=== PATIENT | male | born 1960 | race Caucasian/White ===

== ENCOUNTER 2018-12-31 08:14 | Observation (INO) | payer BC, OTHER ==
[2018-12-31] MEDS ORDERED: NS 1,000 ML IV ONE (08:44)
[2018-12-31 09:05] LABS: PLATELET COUNT 154 10^3/uL (150-400)
[2018-12-31 09:17] LABS: CREATINE KINASE 96 IU/L (0-224)
--- NOTE | 2018-12-31 09:33 | EDPHY ---
H & P Time Seen by Provider: 12/31/18 09:24 HPI/ROS: Chief complaint. Abnormal labs HPI. 50-year-old male with history of dyslipidemia. He began rib path the injections October 23. These are weekly injections. He had routine recheck of labs 2 days ago. The laboratory evaluation showed the AST to be 1532 and ALT 3640. Alkaline phosphatase was 127. LDH 362 with toe deep total bilirubin 1.4. Patient has some nausea. No abdominal pain or vomiting or diarrhea. No fever. No chest pain no shortness of breath. He notes he has been stiff and has had some right low back pain for the last 3-4 days. No recent travel or exposure. Denies Tylenol ingestion ROS 10 systems were reviewed and negative with the exception of the elements mentioned in the history of present illness Past Medical/Surgical History: Sinusitis, hypertension, dyslipidemia, coronary artery bypass graft x4 with stents Social History: Single, nonsmoker, no alcohol Smoking Status: Never smoked Physical Exam: General Appearance: Alert well-developed male mild distress. Vital signs are stable Eyes: Pupils equal and round no pallor or injection. ENT, Mouth: Mucous membranes are moist. Respiratory: There are no retractions, lungs are clear to auscultation. Cardiovascular: Regular rate and rhythm. Gastrointestinal: Abdomen is soft and nontender, no masses, bowel sounds normal. Neurological: Awake and alert, sensory and motor exams grossly normal. Skin: Warm and dry, no rashes. Musculoskeletal: Neck is supple nontender. Extremities symmetrical, full range of motion. Psychiatric: Patient is oriented X 3, there is no agitation. Constitutional: Initial Vital Signs Temperature (C) 36.7 C 12/31/18 08:25 Heart Rate 60 12/31/18 08:25 Respiratory Rate 16 12/31/18 08:25 Blood Pressure 172/100 H 12/31/18 08:25 O2 Sat (%) 98 12/31/18 08:25 O2 Delivery Mode Room Air Allergies/Adverse Reactions: niacin Allergy (Verified 12/31/18 11:26) Dizziness/Faint/Dyspnea Home Medications: Medication Instructions Recorded Lisinopril [Zestril 5 mg (*)] 5 mg PO DAILY 09/08/15 Rosuvastatin Calcium [Crestor 40mg 40 mg PO DAILY 09/08/15 (*)] Aspirin [Aspirin 81mg (*)] 81 mg PO DAILY 12/31/18 Cholecalciferol Vit D3 [Vitamin D3 2,000 units PO DAILY 12/31/18 2000 units tab (OTC)] Cholecalciferol Vit D3 [Vitamin D3 2,000 units PO DAILY 12/31/18 2000 units tab (OTC)] Evolocumab [Repatha Sureclick] 140 mg SQ Q14D 12/31/18 Ferrous Sulfate [Ferrous Sulf 325 325 mg PO DAILY 12/31/18 MG (*)] Fluticasone Nasal [Flonase Nasal 1 sprays NASAL DAILY PRN 12/31/18 [place] (RX)] Metoprolol Succinate Xr [Toprol Xl 12.5 mg PO DAILY 12/31/18 25 mg (*)] Multivitamins [Multivitamin (*)] 1 each PO DAILY 12/31/18 [place]-3 Fatty Acids [Fish Oil 1000 1,000 mg PO DAILY 12/31/18 mg (*)] Prasugrel HCl [Effient 10mg (*)] 10 mg PO DAILY 12/31/18 Medical Decision Making - Diagnostics Imaging Results: Imaging Impressions Abdomen Ultrasound 12/31/18 10:00 Impression: Normal. No cholelithiasis, biliary dilation, hydronephrosis or free fluid. Findings discussed with Emergency Department physician, Vito Cárdenas at 2018 at 11:03 a.m. Procedures: IV normal saline ED Course/Re-evaluation: Patient and I discussed laboratory evaluation, treatment plan including recommendation for admission. He expresses understanding Consulted discussed case with hospitalist, who agrees to the admission Differential Diagnosis: Acute elevation of liver function tests. I have considered Tylenol ingestion, cholecystitis, hepatitis. It is possible that this is medication related. - Data Points Laboratory Results: Laboratory Results 12/31/18 08:50 12/31/18 08:50 12/31/18 12/31/18 12/31/18 08:50 08:50 08:50 WBC 8.19 10^3/uL 10^3/uL (3.80-9.50) RBC 5.72 10^6/uL 10^6/uL (4.40-6.38) Hgb 17.0 g/dL g/dL (13.7-17.5) Hct 52.1 % H % (40.0-51.0) MCV 91.1 fL fL (81.5-99.8) MCH 29.7 pg pg (27.9-34.1) MCHC 32.6 g/dL g/dL (32.4-36.7) RDW 14.1 % % (11.5-15.2) Plt Count 154 10^3/uL 10^3/uL (150-400) MPV 12.1 fL H fL (8.7-11.7) Neut % (Auto) 42.6 % % (39.3-74.2) Lymph % (Auto) 29.8 % % (15.0-45.0) [place] % (Auto) 11.1 % % (4.5-13.0) Eos % (Auto) 14.7 % H % (0.6-7.6) Baso % (Auto) 1.6 % % (0.3-1.7) Nucleat RBC Rel Count 0.0 % % (0.0-0.2) Absolute Neuts (auto) 3.49 10^3/uL 10^3/uL (1.70-6.50) Absolute Lymphs (auto) 2.44 10^3/uL 10^3/uL (1.00-3.00) Absolute Monos (auto) 0.91 10^3/uL H 10^3/uL (0.30-0.80) Absolute Eos (auto) 1.20 10^3/uL H 10^3/uL (0.03-0.40) Absolute Basos (auto) 0.13 10^3/uL H 10^3/uL (0.02-0.10) Absolute Nucleated RBC 0.00 10^3/uL 10^3/uL (0-0.01) Immature Gran % 0.2 % % (0.0-1.1) Immature Gran # 0.02 10^3/uL 10^3/uL (0.00-0.10) Sodium 141 mEq/L mEq/L (135-145) Potassium 4.4 mEq/L mEq/L (3.5-5.2) Chloride 109 mEq/L mEq/L (97-110) Carbon Dioxide 22 mEq/l mEq/l (22-31) Anion Gap 10 mEq/L mEq/L (6-14) BUN 17 mg/dL mg/dL (7-23) Creatinine 0.9 mg/dL mg/dL (0.7-1.3) Estimated GFR > 60 Glucose 104 mg/dL H mg/dL (70-100) Calcium 9.4 mg/dL mg/dL (8.5-10.4) Total Bilirubin 0.5 mg/dL mg/dL (0.1-1.4) Conjugated Bilirubin 0.4 mg/dL mg/dL (0.0-0.5) Unconjugated Bilirubin 0.1 mg/dL mg/dL (0.0-1.1) AST 365 IU/L H IU/L (17-59) ALT 2142 IU/L H IU/L (21-72) Alkaline Phosphatase 99 IU/L IU/L (38-126) Creatine Kinase 96 IU/L IU/L (0-224) Total Protein 6.5 g/dL g/dL (6.3-8.2) Albumin 4.0 g/dL g/dL (3.5-5.0) Lipase 335 IU/L H IU/L (23-300) Urine Color Urine Appearance Urine pH Ur Specific [place] Urine Protein Urine Ketones Urine Blood Urine Nitrate Urine Bilirubin Urine Urobilinogen Ur Leukocyte Esterase Urine Glucose Acetaminophen < 10 mcg/mL L mcg/mL (10-30) 12/31/18 08:30 WBC RBC Hgb Hct MCV MCH MCHC RDW Plt Count MPV Neut % (Auto) Lymph % (Auto) Cass % (Auto) Eos % (Auto) Baso % (Auto) Nucleat RBC Rel Count Absolute Neuts (auto) Absolute Lymphs (auto) Absolute Monos (auto) Absolute Eos (auto) Absolute Basos (auto) Absolute Nucleated RBC Immature Gran % Immature Gran # Sodium Potassium Chloride Carbon Dioxide Anion Gap BUN Creatinine Estimated GFR Glucose Calcium Total Bilirubin Conjugated Bilirubin Unconjugated Bilirubin AST ALT Alkaline Phosphatase Creatine Kinase Total Protein Albumin Lipase Urine Color YELLOW Urine Appearance HAZY Urine pH 5.0 (5.0-7.5) Ur Specific [place] 1.018 (1.002-1.030) Urine Protein NEGATIVE (NEGATIVE) Urine Ketones NEGATIVE (NEGATIVE) Urine Blood NEGATIVE (NEGATIVE) Urine Nitrate NEGATIVE (NEGATIVE) Urine Bilirubin NEGATIVE (NEGATIVE) Urine Urobilinogen NEGATIVE EU EU (0.2-1.0) Ur Leukocyte Esterase NEGATIVE (NEGATIVE) Urine Glucose NEGATIVE (NEGATIVE) Acetaminophen Medications Given: Sodium Chloride (Ns) 1,000 mls @ 125 mls/hr IV CONT MELANI Stop: 06/29/19 10:29 Last Admin: 12/31/18 12:34 Dose: 1,000 mls Discontinued Medications Sodium Chloride (Ns) 1,000 mls @ 0 mls/hr IV EDNOW ONE; Wide Open PRN Reason: Protocol Stop: 12/31/18 08:45 Last Admin: 12/31/18 08:55 Dose: 1,000 mls Departure - Departure Disposition: [facility] Acute Clinical Impression: Liver function abnormality Condition: Fair
[2018-12-31] MEDS ORDERED: ONDANSETRON 4 MG/2 ML VIAL IVP PRN (10:25)
[2018-12-31] MEDS ORDERED: ONDANSETRON DISINTEGRATING 4 MG TAB PO PRN (10:25)
[2018-12-31] MEDS ORDERED: ACETAMINOPHEN 325 MG TAB PO PRN (10:25)
[2018-12-31] MEDS: NS 1,000 ML IV SCH ×2 (12:34→20:26)
--- NOTE | 2018-12-31 15:28 | PDGENHP ---
History and Physical - Chief Complaint Transaminitis - History of Present Illness Vito Murray is a 58 yo M with a PMHx of HLD receiving Repatha injections biweekly , CAD s/p Stenting 08/2018 who presents to [facility] for abnormal liver function tests. Patient reports that he had routine labs checked 2 days ago which revealed elevated liver enzymes so he was directed to [facility] ED this morning. He denies any abdominal pain, n/v, d/c, jaundice, edema, f/c, chest pain, SOB. He denies any tylenol use, drinks socially on weekends, denies any other drug use or recent travel. History Information - Allergies/Home Medication List Allergies/Adverse Reactions: niacin Allergy (Verified 12/31/18 11:26) Dizziness/Faint/Dyspnea Home Medications: Lisinopril [Zestril 5 mg (*)] 5 mg PO DAILY 09/08/15 [Last Taken 12/31/18] Rosuvastatin Calcium [Crestor 40mg (*)] 40 mg PO DAILY 09/08/15 [Last Taken 05/13] Aspirin [Aspirin 81mg (*)] 81 mg PO DAILY 12/31/18 [Last Taken 12/31/18] Cholecalciferol Vit D3 [Vitamin D3 2000 units tab (OTC)] 2,000 units PO DAILY [Last Taken 12/31/18] Cholecalciferol Vit D3 [Vitamin D3 2000 units tab (OTC)] 2,000 units PO DAILY [Last Taken 12/31/18] Evolocumab [Repatha Sureclick] 140 mg SQ Q14D 12/31/18 [Last Taken 12/18/18] Ferrous Sulfate [Ferrous Sulf 325 MG (*)] 325 mg PO DAILY 12/31/18 [Last Taken 12/31/18] Fluticasone Nasal [Flonase Nasal [place] (RX)] 1 sprays NASAL DAILY PRN 12/31/18 [ Last Taken Unknown] Metoprolol Succinate Xr [Toprol Xl 25 mg (*)] 12.5 mg PO DAILY 12/31/18 [Last Taken 12/31/18] Multivitamins [Multivitamin (*)] 1 each PO DAILY 12/31/18 [Last Taken 12/31/18] [place]-3 Fatty Acids [Fish Oil 1000 mg (*)] 1,000 mg PO DAILY 12/31/18 [Last Taken 12/31/18] Prasugrel HCl [Effient 10mg (*)] 10 mg PO DAILY 12/31/18 [Last Taken 12/31/18] I have personally reviewed and updated: family history, medical history, social history, surgical history - Past Medical History coronary artery disease, hyperlipidemia - Surgical History Reports: no pertinent surgical hx - Family History Positive for: non-pertinent - Social History Smoking Status: Never smoked Alcohol Use: Occasionally Drug Use: None Review of Systems Review of Systems: ROS: 10pt was reviewed & negative except for what was stated in HPI & below Physical Exam Physical Exam: Temp Pulse Resp BP Pulse Ox 37.0 C 49 L 12 152/85 H 94 12/31/18 11:23 12/31/18 11:23 12/31/18 11:23 12/31/18 11:23 12/31/18 11:23 Constitutional: no apparent distress Eyes: PERRL Ears, Nose, Mouth, Throat: moist mucous membranes Cardiovascular: regular rate and rhythym Respiratory: no respiratory distress Gastrointestinal: soft, non-tender abdomen, No guarding, No rebound, No distension Genitourinary: No velazco in urethra Skin: warm, normal color Musculoskeletal: full muscle strength Neurologic: AAOx3 Psychiatric: interacting appropriately Lab Data & Imaging Review 12/31/18 08:50 12/31/18 08:50 WBC 8.19 10^3/uL (3.80-9.50) 12/31/18 08:50 RBC 5.72 10^6/uL (4.40-6.38) 12/31/18 08:50 Hgb 17.0 g/dL (13.7-17.5) 12/31/18 08:50 Hct 52.1 % (40.0-51.0) H 12/31/18 08:50 MCV 91.1 fL (81.5-99.8) 12/31/18 08:50 MCH 29.7 pg (27.9-34.1) 12/31/18 08:50 MCHC 32.6 g/dL (32.4-36.7) 12/31/18 08:50 RDW 14.1 % (11.5-15.2) 12/31/18 08:50 Plt Count 154 10^3/uL (150-400) 12/31/18 08:50 MPV 12.1 fL (8.7-11.7) H 12/31/18 08:50 Neut % (Auto) 42.6 % (39.3-74.2) 12/31/18 08:50 Lymph % (Auto) 29.8 % (15.0-45.0) 12/31/18 08:50 [place] % (Auto) 11.1 % (4.5-13.0) 12/31/18 08:50 Eos % (Auto) 14.7 % (0.6-7.6) H 12/31/18 08:50 Baso % (Auto) 1.6 % (0.3-1.7) 12/31/18 08:50 Nucleat RBC Rel Count 0.0 % (0.0-0.2) 12/31/18 08:50 Absolute Neuts (auto) 3.49 10^3/uL (1.70-6.50) 12/31/18 08:50 Absolute Lymphs (auto) 2.44 10^3/uL (1.00-3.00) 12/31/18 08:50 Absolute Monos (auto) 0.91 10^3/uL (0.30-0.80) H 12/31/18 08:50 Absolute Eos (auto) 1.20 10^3/uL (0.03-0.40) H 12/31/18 08:50 Absolute Basos (auto) 0.13 10^3/uL (0.02-0.10) H 12/31/18 08:50 Absolute Nucleated RBC 0.00 10^3/uL (0-0.01) 12/31/18 08:50 Immature Gran % 0.2 % (0.0-1.1) 12/31/18 08:50 Immature Gran # 0.02 10^3/uL (0.00-0.10) 12/31/18 08:50 Sodium 141 mEq/L (135-145) 12/31/18 08:50 Potassium 4.4 mEq/L (3.5-5.2) 12/31/18 08:50 Chloride 109 mEq/L (97-110) 12/31/18 08:50 Carbon Dioxide 22 mEq/l (22-31) 12/31/18 08:50 Anion Gap 10 mEq/L (6-14) 12/31/18 08:50 BUN 17 mg/dL (7-23) 12/31/18 08:50 Creatinine 0.9 mg/dL (0.7-1.3) 12/31/18 08:50 Estimated GFR > 60 12/31/18 08:50 Glucose 104 mg/dL (70-100) H 12/31/18 08:50 Calcium 9.4 mg/dL (8.5-10.4) 12/31/18 08:50 Total Bilirubin 0.5 mg/dL (0.1-1.4) 12/31/18 08:50 Conjugated Bilirubin 0.4 mg/dL (0.0-0.5) 12/31/18 08:50 Unconjugated Bilirubin 0.1 mg/dL (0.0-1.1) 12/31/18 08:50 AST 365 IU/L (17-59) H 12/31/18 08:50 ALT 2142 IU/L (21-72) H 12/31/18 08:50 Alkaline Phosphatase 99 IU/L (38-126) 12/31/18 08:50 Creatine Kinase 96 IU/L (0-224) 12/31/18 08:50 Total Protein 6.5 g/dL (6.3-8.2) 12/31/18 08:50 Albumin 4.0 g/dL (3.5-5.0) 12/31/18 08:50 Lipase 335 IU/L (23-300) H 12/31/18 08:50 Urine Color YELLOW 12/31/18 08:30 Urine Appearance HAZY 12/31/18 08:30 Urine pH 5.0 (5.0-7.5) 12/31/18 08:30 Ur Specific [place] 1.018 (1.002-1.030) 12/31/18 08:30 Urine Protein NEGATIVE (NEGATIVE) 12/31/18 08:30 Urine Ketones NEGATIVE (NEGATIVE) 12/31/18 08:30 Urine Blood NEGATIVE (NEGATIVE) 12/31/18 08:30 Urine Nitrate NEGATIVE (NEGATIVE) 12/31/18 08:30 Urine Bilirubin NEGATIVE (NEGATIVE) 12/31/18 08:30 Urine Urobilinogen NEGATIVE EU (0.2-1.0) 12/31/18 08:30 Ur Leukocyte Esterase NEGATIVE (NEGATIVE) 12/31/18 08:30 Urine Glucose NEGATIVE (NEGATIVE) 12/31/18 08:30 Acetaminophen < 10 mcg/mL (10-30) L 12/31/18 08:50 Assessment & Plan Assessment: Transaminitis - Routine labs from 12/29 showed AST 1532 and ALT 3640, LDH 362 with total bilirubin 1.4. - Denies any symptoms associated including jaundice, abdominal pain, n/v, d/c - In setting of Repatha injections biweekly, last injection 2 weeks ago, Crestor 40 mg qd - LFTs on admission, AST 365, ALT 2142, T Bili 0.5, Lipase 335, downtrending since 12/29, Alk Phos/CK WNL - Abdominal U/S on admission showing no acute abnormalities including no cholelithiasis, biliary dilation, hydronephrosis or free fluid - Tylenol level negative on admission, no significant alcohol use reported - Will perform further laboratory testing with Acute viral hepatitis serologies , Iron/TIBC and Ferritin, TSH to evaluate for hemochromatosis - If above w/u is negative and LFTs not improving will consult GI, perform further blood work with Autoimmune hepatitis testing (PENELOPE, anti-smooth muscle), Anand Disease (serum ceruloplasmin), Alpha-1 antitrypsin deficiency, further abdominal imaging (CT vs. MRI) CAD S/p Stenting - Performed 08/2018 - Continue home medications including ASA, Effient, Metoprolol, Lisinopril - Will hold home Crestor for now given transaminitis HLD - Will hold home Crestor and Repatha due to transaminitis FEN: IVF, Regular DVT PPx: Low risk, SCDs Code: FULL Dispo: Admit to Observation
[2018-12-31] MEDS ORDERED: FLUTICASONE NASAL 120 SPRAYS/16 GM MDI EACHNARE PRN (15:30)
[2018-12-31 17:20] LABS: HEPATITIS B CORE AB IGM NEGATIVE (NEGATIVE); HEPATITIS B SURFACE ANTIGEN NEGATIVE (NEGATIVE)
[2018-12-31 17:21] LABS: HEPATITIS A ANTIBODY IGM (BCH) NEGATIVE (NEGATIVE)
[2018-12-31 18:44] LABS: HEPATITIS C ANTIBODY TOTAL NEGATIVE (NEGATIVE)
[2019-01-01] MEDS: NS 1,000 ML IV SCH (03:54)
[2019-01-01 05:08] LABS: INR 1.04 (0.83-1.16); PROTIME(PATIENT) 13.2 SEC (12.0-15.0)
[2019-01-01 08:40] VITALS: BP 122/72
[2019-01-01] MEDS ORDERED: METOPROLOL SUCCINATE XR 25 MG TAB PO SCH (09:00)
[2019-01-01] MEDS ORDERED: LISINOPRIL 5 MG TAB PO SCH (09:00)
[2019-01-01] MEDS ORDERED: PRASUGREL HCL 10 MG TAB PO SCH (09:00)
[2019-01-01] MEDS ORDERED: FERROUS SULFATE 325 MG TAB PO SCH (09:00)
[2019-01-01] MEDS ORDERED: ASPIRIN 81 MG CHEWABLE TAB PO SCH (09:00)
--- NOTE | 2019-01-01 09:47 | ASMTCMCOM ---
CM Note CM Note Notes: Pts case discussed w/ Dr. Mullen. Pt is a 58 y/o man admitted for transaminitis. Pt will most likely d/c independent when medically stable. No therapies ordered at this time. CM available for changes. Plan: Independent Date Signed: 01/01/2019 09:46 AM Electronically Signed By:MICKEY Gonsalves
[2019-01-01] MEDS ORDERED: diphenhydrAMINE 25 MG CAP PO ONE (10:15)
--- NOTE | 2019-01-01 14:33 | PDDCSUM ---
Discharge Summary Discharge Summary: Date of Admission: 12/31/2018 Date of Discharge: 01/01/2019 Consults: N/A Procedures: Abd U/S Followup: PCP, GI Hospital Course Problem List: Transaminitis - Routine labs from 12/29 showed AST 1532 and ALT 3640, LDH 362 with total bilirubin 1.4. - Denies any symptoms associated including jaundice, abdominal pain, n/v, d/c - In setting of Repatha injections biweekly, last injection 2 weeks ago, Crestor 40 mg qd - LFTs on admission, AST 365, ALT 2142, T Bili 0.5, Lipase 335, downtrending since 12/29, Alk Phos/CK WNL - Abdominal U/S on admission showing no acute abnormalities including no cholelithiasis, biliary dilation, hydronephrosis or free fluid - Tylenol level negative on admission, no significant alcohol use reported - Acute viral hepatitis serologies negative - Iron and Ferritin increased during admission, discussed with Hematology due to concern for possible hemochromatosis causing LFT abnormalities, they believe that ferritin elevation is acute phase reactant in setting of liver inflammation , will discontinue home Fe supplement - LFTs continue to improve prior to discharge, AST 167, ALT 1334 on morning prior to discharge - Discussed importance of continuing to monitor LFTs with repeat sat on Friday with PCP and close f/u with them in order to further evaluate and manage with GI referral as outpatient if not normalizing CAD S/p Stenting - Performed 08/2018 - Continue home medications including ASA, Effient, Metoprolol, Lisinopril - Will hold home Crestor for now given transaminitis, patient has f/u with Dr. Appiah next where I recommended discussing these medications which are currently being held HLD - Holding home Crestor and Repatha due to transaminitis
== END 2019-01-01 11:48 | disposition home or self-care (01) ==
LOC: INTOOBSV 10:10 → F3E 11:18
PROVIDERS: ADMIT Internal Medicine; ATTEND Internal Medicine
DX: R74.0 Nonspecific elevation of levels of transaminase and lactic acid dehydrogenase [LDH] (principal); I25.10 Atherosclerotic heart disease of native coronary artery without angina pectoris; Z95.5 Presence of coronary angioplasty implant and graft; E78.5 Hyperlipidemia, unspecified; E86.9 Volume depletion, unspecified
CPT/HCPCS: 76705; 96360; 99285; G0378; 86705-90; 86709-90; G0472; G0480